=== PATIENT | male | born 1995 | race Caucasian/White ===

== ENCOUNTER 2017-03-27 07:19 | Emergency (ER) | payer SELFPAY, OTHER ==
[2017-03-27] MEDS: ACETAMINOPHEN 500 MG TAB PO (09:33)
[2017-03-27] MEDS: ONDANSETRON (ODT) 4 MG TAB ODT (09:33)
== END 2017-03-27 10:26 | disposition home or self-care (01) ==
LOC: FTE 07:19
DX: R50.9 Fever, unspecified (principal); R05 Cough; J02.9 Acute pharyngitis, unspecified; R52 Pain, unspecified; R11.0 Nausea
CPT/HCPCS: 99283

== ENCOUNTER 2017-04-24 19:51 | Emergency (ER) | payer OTHER ==
[2017-04-24] MEDS: IBUPROFEN 600 MG TAB PO (21:53)
[2017-04-24] MEDS: KETAMINE 500 MG INJ IV (23:40)
[2017-04-24] MEDS: PROPOFOL 200 MG INJ IV (23:40)
[2017-04-25] MEDS: HYDROCODONE/APAP (5/325) TAB PO (00:47)
== END 2017-04-25 01:32 | disposition home or self-care (01) ==
LOC: E/R 04-25 01:32 → FTE 19:51
DX: S63.055A Dislocation of other carpometacarpal joint of left hand, initial encounter (principal); W22.8XXA Striking against or struck by other objects, initial encounter; Y92.9 Unspecified place or not applicable
CPT/HCPCS: 26670; 73120; 73130-RT; 94770; 99285-25